=== PATIENT | male | born 1935 ===

== ENCOUNTER 2018-04-16 14:09 | Emergency (ER) | payer MEDICARE ==
--- NOTE | 2018-04-16 15:09 | UC ---
Hypertension HPI - HPI Summary HPI Summary: 82-year-old male comes in with chief complaint of high blood pressure. Patient reports that when he woke up today he was feeling a little bit lightheaded and slightly nauseous. He used his snowblower to clear the driveway. He continued to feel slightly lightheaded and nauseous. The activity did not make the symptoms worse. He denies any chest pain or shortness of breath or sweating. After he was done snowblowing he checked his blood pressure and several readings were over 200 systolic. He did forget to take several of his blood pressure medicines yesterday but he did take them today. He had a friend yesterday. Otherwise he's been feeling well. - History of Current Complaint Chief Complaint: UCCardiac Stated Complaint: BP HIGH Time Seen by Provider: 04/16/18 14:32 - Allergies/Home Medications Allergies/Adverse Reactions: Allergies Allergy/AdvReac Type Severity Reaction Status Date / Time No Known Allergies Allergy Verified 04/16/18 14:19 Home Medications: Home Medications Allopurinol 100 mg PO DAILY 04/16/18 [History Confirmed 04/16/18] Aspirin 81 mg PO DAILY 04/16/18 [History Confirmed 04/16/18] Cholecalciferol (Vitamin D3) [Vitamin D3] 1,000 unit PO QPM 04/16/18 [History Confirmed 04/16/18] PMH/Surg Hx/FS Hx/Imm Hx Previously Healthy: Yes - gout Endocrine History: Dyslipidemia Cardiovascular History: Hypertension - Surgical History Surgical History: Yes Surgery Procedure, Year, and Place: SURGERY FOR EYES- 2012. COLONOSCOPIES. sinus operation - Social History Alcohol Use: Occasionally Substance Use Type: None Smoking Status (MU): Never Smoked Tobacco Review of Systems All Other Systems Reviewed And Are Negative: Yes Constitutional: Positive: Other - lightheaded Skin: Positive: Negative Eyes: Positive: Negative ENT: Positive: Negative Respiratory: Positive: Negative Cardiovascular: Positive: Negative Gastrointestinal: Positive: Nausea Motor: Positive: Negative Neurovascular: Positive: Negative Musculoskeletal: Positive: Negative Neurological: Positive: Negative Psychological: Positive: Negative Is Patient Immunocompromised?: No Physical Exam Triage Information Reviewed: Yes Appearance: Well-Appearing, No Pain Distress, Well-Nourished Vital Signs: Initial Vital Signs Temp 96.1 F 04/16/18 14:13 Pulse 61 04/16/18 14:13 Resp 18 04/16/18 14:13 BP 183/71 04/16/18 14:13 Pulse Ox 97 04/16/18 14:13 Vital Signs Reviewed: Yes Eye Exam: Normal Eyes: Positive: Conjunctiva Clear Neck exam: Normal Neck: Positive: Supple Respiratory Exam: Normal Respiratory: Positive: Lungs clear, Normal breath sounds, No respiratory distress Cardiovascular Exam: Normal Cardiovascular: Positive: RRR Musculoskeletal Exam: Normal Musculoskeletal: Positive: Strength Intact, ROM Intact, No Edema Neurological Exam: Normal Neurological: Positive: Alert, Muscle Tone Normal, Other: - no calf tenderness Psychological Exam: Normal Psychological: Positive: Normal Response To Family, Age Appropriate Behavior Skin Exam: Normal Diagnostics - EKG Cardiac Rate: NL - at 14:42, Bradycardia - 59bpm Cardiac Rhythm: Sinus: Normal Ectopy: : PVCs, PACs ST Segment: Normal EKG Comparison: No Significant Change - 04/01/13 ekg Summary of EKG Findings: pr interval prolonged 225 Hypertension Course/Dx - Course Course Of Treatment: I discussed with the patient's I discussed with the patient the results of his EKG. I do not see any significant change from his 2013 EKG. The patient denies any chest pain or shortness of breath or sweating. He states that when he was using the snowblower his symptoms did not get any worse than when he was at rest. We discussed going to the emergency department for further evaluation for potential cardiac causes. At this time the patient declines but he did say that if he had any chest pain or shortness of breath or continuing symptoms he would go to the emergency department. He did have a family member here with him. - Differential Dx/Diagnosis Provider Diagnosis: Hypertension, Lightheaded, Nausea Discharge - Sign-Out/Discharge Documenting (check all that apply): Patient Departure All imaging exams completed and their final reports reviewed: No Studies - Discharge Plan Condition: Stable Disposition: HOME Patient Education Materials: Hypertension (ED), Lightheadedness (ED) Referrals: Ramses Arroyo MD [Primary Care Provider] - Additional Instructions: FOLLOW UP WITH YOUR DOCTOR. GO TO THE EMERGENCY DEPARTMENT FOR ANY WORSENING OF YOUR CONDITION; CHEST PAIN, SHORTNESS OF BREATH, YOU SYMPTOMS PERSIST OR WORSEN OR QUESTIONS OR CONCERNS. - Billing Disposition and Condition Condition: STABLE Disposition: Home
[2018-04-16 15:32] VITALS: BP 174/81
== END 2018-04-16 15:20 | disposition home or self-care (01) ==
LOC: UCEAST 14:09
DX: I10 Essential (primary) hypertension (principal); R42 Dizziness and giddiness; R11.0 Nausea; R00.1 Bradycardia, unspecified; M10.9 Gout, unspecified
CPT/HCPCS: 93005; 99211; G0463